=== PATIENT | female | born 1955 | race Caucasian/White ===

== ENCOUNTER 2022-08-19 21:13 | Inpatient (IN) ==
[2022-08-19 22:57] LABS: ABS Eosinophils 0.1 10^3/ul (0-0.6); ABS Lymphocytes 0.2 10^3/ul (1.0-4.8); ABS Monocytes 0.8 10^3/ul (0-0.8); ABS Neutrophils 5.4 10^3/ul (1.5-7.7); Eosinophil % 0.8 %; Hematocrit 39 % (35-47); Hemoglobin 13.3 g/dL (12.0-16.0); Lymphocyte % 3.6 %; Mean Corpuscular HGB Conc 34 g/dL (31-36); Mean Corpuscular Hemoglobin 31 pg (27-31); Mean Corpuscular Volume 91 fL (80-97); Mean Platelet Volume 7.8 fL (7.4-10.4); Platelet Count 186 10^3/uL (150-450); Red Blood Count 4.32 10^6 /uL (3.70-4.87); Red Cell Distribution Width 13 % (10-15); White Blood Count 6.5 10^3/uL (3.5-10.8)
[2022-08-19] MEDS ORDERED: Heparin 5000 UNITS/ML 1 mL VIAL IV SCH (23:00)
[2022-08-19 23:32] LABS: ALT 28 U/L (7-52); Albumin 4.2 g/dL (3.2-5.2); Albumin/Globulin Ratio 1.8 (1-3); Alkaline Phosphatase 80 U/L (35-149); Blood Urea Nitrogen 8 mg/dL (6-24); CO2 Carbon Dioxide 22 mmol/L (22-32); Chloride 92 mmol/L (101-111); Globulin 2.3 g/dL (2-4); Glucose 101 mg/dL (70-100); Sodium 124 mmol/L (135-145); Total Protein 6.5 g/dL (6.4-8.9); eGFR CKD-EPI 99.5 (>60)
[2022-08-19 23:34] LABS: High Sens Troponin Baseline > 24000 pg/mL (<15)
[2022-08-19] MEDS ORDERED: Heparin DRIP 25,000 UNITS BAG 25,000 UNITS/500 ML BAG IV SCH (23:45)
[2022-08-20 00:15] LABS: High Sensitivity Troponin 1 Hr > 24000 pg/mL (<15)
[2022-08-20 00:16] LABS: TSH Ultra Thyroid Stim Horm 2.25 mcIU/mL (0.34-5.60)
[2022-08-20 00:37] LABS: AST 132 U/L (13-39); Anion Gap 10 mmol/L (2-11); Potassium 3.9 mmol/L (3.5-5.0)
[2022-08-20 01:07] LABS: Cholesterol 174 mg/dL; HDL Cholesterol 68.8 mg/dL; LDL Cholesterol 78 mg/dL; Triglycerides 134 mg/dL
[2022-08-20] MEDS ORDERED: NS 0.9% 1000 ml BAG 1,000 ML IV SCH ×2 (02:00→07:30)
[2022-08-20] MEDS ORDERED: NS 0.9% 500 ml BAG 500 ML IV ONE ×2 (02:17→03:19)
[2022-08-20 02:51] LABS: Osmolality Serum 262 mOsm/kg (275-295)
[2022-08-20 03:37] LABS: Urine Osmo 381 mOsm/kg (150-1150)
[2022-08-20 03:43] LABS: ABS Lymphocytes 0.3 10^3/ul (1.0-4.8); ABS Monocytes 0.6 10^3/ul (0-0.8); ABS Neutrophils 5.1 10^3/ul (1.5-7.7); Eosinophil % 0.8 %; Hematocrit 35 % (35-47); Hemoglobin 11.9 g/dL (12.0-16.0); Lymphocyte % 4.9 %; Mean Corpuscular HGB Conc 34 g/dL (31-36); Mean Corpuscular Hemoglobin 31 pg (27-31); Mean Corpuscular Volume 91 fL (80-97); Mean Platelet Volume 7.9 fL (7.4-10.4); Nucleated Red Blood Cells % 0.1; Platelet Count 176 10^3/uL (150-450); Red Blood Count 3.84 10^6 /uL (3.70-4.87); Red Cell Distribution Width 14 % (10-15)
[2022-08-20 04:01] LABS: Calcium 8.2 mg/dL (8.6-10.3); eGFR CKD-EPI 96.6 (>60)
[2022-08-20] MEDS ORDERED: Heparin DRIP 25,000 UNITS BAG 25,000 UNITS/500 ML BAG IV SCH ×2 (04:15→17:45)
[2022-08-20 04:21] LABS: eGFR CKD-EPI 95.9 (>60)
[2022-08-20] MEDS ORDERED: Heparin 5000 UNITS/ML 1 mL VIAL IV SCH (05:00)
[2022-08-20 05:40] LABS: ABS Lymphocytes 0.2 10^3/ul (1.0-4.8); ABS Monocytes 0.7 10^3/ul (0-0.8); ABS Neutrophils 4.5 10^3/ul (1.5-7.7); Eosinophil % 0.5 %; Hematocrit 36 % (35-47); Hemoglobin 12.4 g/dL (12.0-16.0); Mean Corpuscular HGB Conc 35 g/dL (31-36); Mean Corpuscular Hemoglobin 31 pg (27-31); Mean Corpuscular Volume 90 fL (80-97); Mean Platelet Volume 7.8 fL (7.4-10.4); Platelet Count 169 10^3/uL (150-450); Red Blood Count 3.98 10^6 /uL (3.70-4.87); Red Cell Distribution Width 14 % (10-15); White Blood Count 5.4 10^3/uL (3.5-10.8)
[2022-08-20 06:13] LABS: Magnesium 1.8 mg/dL (1.9-2.7)
[2022-08-20] MEDS ORDERED: Magnesium Sulfate 2 gm BAG 2 GM/50 ML BAG IVPB ONE (06:23)
[2022-08-20] MEDS ORDERED: Sulfur Hexaflouride MICROSPHR 25 MG VIAL ONE (07:52)
[2022-08-20 09:00] LABS: C Reactive Protein 38.57 mg/L (<8.01)
[2022-08-20 10:50] LABS: Erythrocyte Sed Rate 13 mm/Hr (0-29)
[2022-08-20] MEDS ORDERED: Heparin 1,000 UNIT/ML 10 ml (10,000 UNITS) CATHLAB/DIALYSIS ONE (12:26)
[2022-08-20] MEDS ORDERED: fentaNYL 100 mcg/2 ml 50 MCG/ML VIAL ONE (12:26)
[2022-08-20] MEDS ORDERED: Heparin 2 UNITS/ML 1000 mls 2,000 ML IV ONE (12:26)
[2022-08-20] MEDS ORDERED: nitroGLYCERIN DRIP 25,000 MCG/250 ML BTL ONE (12:26)
[2022-08-20] MEDS ORDERED: Midazolam 5 mg/5 ml VIAL 1 mg/ml 5 ml VIAL (5 mg) ONE (12:26)
[2022-08-20] MEDS ORDERED: Iohexol 350 (CONTRAST) 100 ML PAK IV ONE ×3 (12:27→12:29)
[2022-08-20] MEDS ORDERED: Lidocaine 1% MPF 5 ML VIAL ONE (12:27)
[2022-08-20] MEDS ORDERED: niCARdipine 0.1MG/ML IVPREMIX 20 MG/200 ML BAG IV ONE (12:27)
[2022-08-20 12:54] LABS: Calcium 8.5 mg/dL (8.6-10.3); Potassium 4.2 mmol/L (3.5-5.0)
[2022-08-20 13:47] LABS: POC SO2 88 %
[2022-08-20 13:47] LABS: POC SO2 85 %
[2022-08-20 13:47] LABS: POC SO2 62 %
[2022-08-20 13:47] LABS: POC SO2 63 %
[2022-08-20 16:08] LABS: Calcium 8.1 mg/dL (8.6-10.3); Potassium 3.6 mmol/L (3.5-5.0)
[2022-08-20 17:00] LABS: Folate 7.54 ng/mL (5.90-24.80)
[2022-08-21] MEDS ORDERED: Heparin 5000 UNITS/ML 1 mL VIAL ONE (01:13)
[2022-08-21] MEDS ORDERED: Heparin 5000 UNITS/ML 1 mL VIAL IV SCH (02:00)
[2022-08-21 05:17] LABS: ABS Eosinophils 0.1 10^3/ul (0-0.6); ABS Lymphocytes 0.4 10^3/ul (1.0-4.8); ABS Monocytes 0.8 10^3/ul (0-0.8); ABS Neutrophils 3.1 10^3/ul (1.5-7.7); Eosinophil % 1.3 %; Hematocrit 32 % (35-47); Lymphocyte % 9.1 %; Mean Corpuscular HGB Conc 34 g/dL (31-36); Mean Corpuscular Hemoglobin 31 pg (27-31); Mean Corpuscular Volume 91 fL (80-97); Mean Platelet Volume 8.2 fL (7.4-10.4); Nucleated Red Blood Cells % 0.1; Platelet Count 140 10^3/uL (150-450); Red Blood Count 3.53 10^6 /uL (3.70-4.87); Red Cell Distribution Width 14 % (10-15); White Blood Count 4.4 10^3/uL (3.5-10.8)
[2022-08-21 06:01] LABS: Albumin 3.3 g/dL (3.2-5.2); Albumin/Globulin Ratio 1.8 (1-3); Calcium 7.8 mg/dL (8.6-10.3); Globulin 1.8 g/dL (2-4); Potassium 3.8 mmol/L (3.5-5.0); Total Bilirubin 0.5 mg/dL (0.2-1.0); Total Protein 5.1 g/dL (6.4-8.9); eGFR CKD-EPI 101.2 (>60)
[2022-08-21] MEDS ORDERED: Potassium Chlor 20 meq TAB.ER PO ONE (06:02)
[2022-08-21 06:31] LABS: Magnesium 1.9 mg/dL (1.9-2.7)
[2022-08-21] MEDS ORDERED: Magnesium Sulfate IV 1GM/100ML 1 GM/100 ML BAG IV ONE (06:33)
[2022-08-21 08:01] VITALS: BP 104/76
== END 2022-08-21 08:00 | disposition short-term general hospital (02) | DRG 286 ==
LOC: ED 21:13 → EDHOLD 08-20 01:49 → CHICATH 08-20 12:53 → ICU 08-20 15:00
PROVIDERS: ADMIT Internal Medicine; ATTEND Internal Medicine